=== PATIENT | female | born 1965 | race African-American/Black ===

== ENCOUNTER 2019-03-12 22:10 | Emergency (ER) | payer OTHER ==
[~2019-03-12] VITALS: Ht 172.7 cm; Wt 83.9 kg
[~2019-03-12 22:10] MED LIST: CARAFATE1 GM PO; CARISOPRODOL 3350 MG PO; LISINOPRIL20 MG PO; MS CONTIN 100100 MG PO; MS CONTIN100 MG PO; PERCOCET 10-321 EACH; PERCOCET 10-321 EACH PO; TOPAMAX; [UNRECOGNIZED DRUG - CODE] PO
[2019-03-12] MEDS ORDERED: OMEPRAZOLE20 M2 PO (22:23)
[2019-03-12 22:52] LABS: ABSOLUTE NEUTROPHILS 8.2 thou/uL (1.4-8.2); BASOPHILS 0.5 % (0.0-2.0); EOSINOPHILS 0.1 % (0.0-3.0); HEMATOCRIT 47.6 % (37.0-47.0); HEMOGLOBIN 16.2 gm/dL (12.0-15.0); LYMPHOCYTES 14.7 % (24.0-44.0); MCH 30.9 pg (26.0-34.0); MONOCYTES 5.7 % (1.0-8.0); PLATELET COUNT 261 thou/uL (150-400); RBC 5.23 mil/uL (4.20-5.00); RDW 14.7 % (10.5-14.5); WBC 10.4 thou/uL (4.0-11.0)
[2019-03-12 22:54] LABS: ANION GAP 15 mmol/L (7-16); BUN 10 mg/dL (7-18); CALCIUM 9.7 mg/dL (8.5-10.1); CHLORIDE 101 mmol/L (98-107); CO2 24 mmol/L (21-32); CREATININE 1.1 mg/dL (0.6-1.0); GLUCOSE 114 mg/dL (74-106); POTASSIUM 3.5 mmol/L (3.5-5.1); SODIUM 140 mmol/L (136-145)
[2019-03-12 23:03] LABS: TROPONIN-I <0.06 ng/mL (<0.06)
[2019-03-13] MEDS ORDERED: ZOFRAN ODT4 MG PO (01:18)
[2019-03-13 02:06] VITALS: BP 180/81
--- NOTE | 2019-03-13 11:07 | EKG ---
[address] [address] ELECTROCARDIOGRAM REPORT Name: RICK MARTINEZ Room #: [facility]#: [id number] ������������������ Admission: 03/12/19 ������������������ Attend Phys: Discharge: 03/13/19 ������������������ Date of : 69 Report #: [id number] ����������������������������������������������������������������� [id number] THIS REPORT FOR: //name// [facility] ED Test Date: 2019-03-12 Test Time: 23:19:42 Pat Name: RICK MARTINEZ Department: Room: Gender: F Resource Technician: meredith : 1965 Requested By: Benny Loyola Order Number: [id number] MD: Kenn Lawson Measurements Intervals [place] Rate: 109 P: 71 IN: 173 QRS: 60 QRSD: 89 T: 33 QT: 342 QTc: 461 Interpretive Statements Sinus tachycardia Probable left atrial enlargement Baseline wander in lead(s) I,aVL,V1 Compared to ECG 08/02/2011 11:33:58 Sinus rhythm no longer present Electronically Signed On 03-13-2019 11:06:52 CDT by Kenn Lawson [email or web address] ��������������������������������������������� <ELECTRONICALLY SIGNED> ���������������������������������������� By: Kenn Lawson MD ��������������������������������������������� 03/13/19 1106 18 Kenn Lawson MD /[email or web address]
== END 2019-03-13 02:06 | disposition home or self-care (01) ==
LOC: ER 22:10
PROVIDERS: Emergency Medicine
DX: F11.23 Opioid dependence with withdrawal (principal); E86.0 Dehydration; G62.9 Polyneuropathy, unspecified; F17.210 Nicotine dependence, cigarettes, uncomplicated; Z85.41 Personal history of malignant neoplasm of cervix uteri; Z98.51 Tubal ligation status; Z88.0 Allergy status to penicillin; Z88.5 Allergy status to narcotic agent; Z88.6 Allergy status to analgesic agent

== ENCOUNTER → 2020-04-11 | Outpatient (CLI) | payer OTHER ==
[~2020-04-11] MED LIST changes: +OMEPRAZOLE20 M2 PO; +ZOFRAN ODT4 MG PO
== END ==
LOC: MRI 13:41
PROVIDERS: ATTEND Internal Medicine Rheumatology
DX: M51.17 Intervertebral disc disorders with radiculopathy, lumbosacral region (principal); G62.0 Drug-induced polyneuropathy